=== PATIENT | female | born 1995 | race Two or more races ===

== ENCOUNTER 2017-07-08 11:40 | Emergency (ER) | payer OTHER ==
[~2017-07-08] VITALS: Ht 157.5 cm; Wt 74.8 kg
[2017-07-08 13:29] VITALS: BP 113/75
== END 2017-07-08 14:16 | disposition home or self-care (01) ==
LOC: ER 11:40
DX: S46.912A Strain of unspecified muscle, fascia and tendon at shoulder and upper arm level, left arm, initial encounter (principal); S60.031A Contusion of right middle finger without damage to nail, initial encounter; V43.02XA Car driver injured in collision with other type car in nontraffic accident, initial encounter; Y93.89 Activity, other specified; Y92.410 Unspecified street and highway as the place of occurrence of the external cause; Y99.8 Other external cause status
CPT/HCPCS: 73030; 73130